=== PATIENT | male | born 1960 | race Caucasian/White ===

== ENCOUNTER → 2019-12-03 | Outpatient (REF) | payer OTHER | LOC: M LAB REF 17:44 | PROVIDERS: ATTEND Physician Assistant | DX: L82.1 Other seborrheic keratosis (principal) ==

== ENCOUNTER → 2021-04-01 | Outpatient (REF) | payer OTHER | LOC: M LAB REF 15:07 | PROVIDERS: ATTEND Physician Assistant | DX: L57.0 Actinic keratosis (principal) ==